=== PATIENT | male | born 2000 | race African-American/Black ===

== ENCOUNTER → 2019-12-28 | Outpatient (CLI) | payer BC ==
[2019-12-28 11:41] LABS: BASOPHILS % 0.7 % (0.0-2.0); EOSINOPHILS % 0.3 % (0.0-5.0); HEMATOCRIT. 46.9 % (42.0-52.0); HEMOGLOBIN. 15.4 g/dL (14.0-18.0); LYMPHOCYTES % 26.5 % (20.0-50.0); MEAN CORPUSCULAR HEMOGLOBIN 29.3 pg (28.0-32.0); MEAN CORPUSCULAR VOLUME 89.2 fL (80.0-94.0); MEAN PLATELET VOLUME 8.9 fl (7.4-10.4); MONOCYTES % 6.3 % (2.0-8.0); NEUTROPHILS % 66.2 % (40.0-76.0); PLATELET 258 x1000/uL (130-400); RED BLOOD CELL COUNT 5.26 mill/uL (4.7-6.1); RED CELL DISTRIBUTION WIDTH 12.4 % (11.6-14.6)
[2019-12-28 12:06] LABS: CHLORIDE 105 mEq/L (98-107)
[2019-12-28 12:12] LABS: LDL CHOLESTEROL 131 mg/dL (5-100)
[2019-12-28 12:13] LABS: HDL CHOLESTEROL 67 mg/dL (40-59)
[2019-12-28 12:14] LABS: TOTAL IRON BINDING CAPACITY 333 ug/dL (250-450)
[2019-12-28 12:38] LABS: VITAMIN B12 SERUM 1003 pg/mL (211-911)
[2019-12-28 13:10] LABS: HEPATITIS B SURFACE AB 59.7 mIU/mL
[2019-12-28 13:50] LABS: HEPATITIS A AB IGM NEGATIVE (NEGATIVE)
[2019-12-29 06:10] LABS: HBSAG SCREEN Negative (Negative); HIV SCREEN 4G Non Reactive (Non Reactive)
[2019-12-30 04:08] LABS: NEISSERIA GONORRHOEAE NAA Negative (Negative)
== END | disposition home or self-care (01) ==
LOC: LAB 10:57
PROVIDERS: ATTEND Internal Medicine Geriatric Medicine
DX: Z11.3 Encounter for screening for infections with a predominantly sexual mode of transmission (principal); N39.0 Urinary tract infection, site not specified; Z00.01 Encounter for general adult medical examination with abnormal findings; Z13.220 Encounter for screening for lipoid disorders
CPT/HCPCS: 36415; 80053; 80061; 82607; 83540; 83550; 85025; 86705; 86706; 86709; 86803; 87340; 87389; 87491; 87591